=== PATIENT | female | born 1965 | race Caucasian/White ===

== ENCOUNTER 2017-12-01 00:27 | Emergency (ER) | payer OTHER ==
[2017-12-01] MEDS ORDERED: Amoxicillin/Clavulanate TAB* 875 MG PO ONE (02:40)
[2017-12-01] MEDS ORDERED: oxyCODONE/Acetamin 5/325 MG* TAB PO ONE (02:41)
[2017-12-01 03:40] VITALS: BP 125/85
--- NOTE | 2017-12-01 06:53 | ED ---
Tony White Abhishek, scribed for Jose R Agustin MD on 12/01/17 at 0325 . Throat Pain/Nasal Congestion - HPI Summary HPI Summary: Pt is a 52 y/o female presenting to the [facility] with a chief complaint of right ear pain since 5 days ago. The pt also reports of throat pain, neck pain, wheezing, sore throat, chest congestion, and fever. 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 The patient rates the pain 7/10 in severity. Symptoms aggravated by nothing. Symptoms alleviated by nothing. - History of Current Complaint Chief Complaint: EDEarPain Time Seen by Provider: 12/01/17 03:11 Hx Obtained From: Patient Onset/Duration: Gradual Onset, Lasting Days - since 5 days - Allergies/Home Medications Allergies/Adverse Reactions: Allergies Allergy/AdvReac Type Severity Reaction Status Date / Time Adhesive Tape Allergy Rash Verified 03/27/16 09:36 cefpodoxime [From Vantin] Allergy Rash And Verified 12/01/17 00:35 Itching latex Allergy Rash And Verified 12/01/17 00:35 Itching Sulfa (Sulfonamide Allergy Rash Verified 12/01/17 00:34 Antibiotics) PMH/Surg Hx/FS Hx/Imm Hx Cardiovascular History: Reports: Hx Hypertension, Other Cardiovascular Problems/ Disorders - CLOT IN LEFT LEG-HAD VEIN SURGERY NO PROBLEMS NOW Denies: Hx Hypercholesterolemia GI History: Reports: Hx Gastroesophageal Reflux Disease, Hx Hiatal Hernia - KAREN FUNDIPLICATION DONE A FEW YEARS AGO Musculoskeletal History: Reports: Hx Arthritis - HIPS Sensory History: Reports: Hx Contacts or Glasses - GLASSES Denies: Hx Hearing Aid Opthamlomology History: Reports: Hx Contacts or Glasses - GLASSES - Surgical History Surgery Procedure, Year, and Place: BACK SURGERY- [facility]-1999. KAREN FUNDOPLICATION- [facility]. 5 EAR SURGERIES. HYSTERECTOMY. CHOLECYSTECTOMY. WISDOM TEETH;. T & A. vein removed left leg Hx Anesthesia Reactions: Yes - NAUSEA AND VOMITING Infectious Disease History: No Infectious Disease History: Denies: Hx Clostridium Difficile, Hx Hepatitis, Hx Human Immunodeficiency Virus (HIV), Hx of Known/Suspected MRSA, Hx Shingles, Hx Tuberculosis, Hx Known/ Suspected VRE, Hx Known/Suspected VRSA, History Other Infectious Disease, Traveled Outside the [place] in Last 30 Days - Family History Known Family History: Positive: Cardiac Disease - both F and M - Social History Alcohol Use: Rare Hx Substance Use: No Substance Use Type: Reports: None Hx Tobacco Use: No Smoking Status (MU): Never Smoked Tobacco Review of Systems Positive: Fever Eyes: Negative ENT: Other - throat pain Positive: Sore Throat, Ear Ache - Right ear Respiratory: Other - Chest congestion, wheezing Gastrointestinal: Negative Genitourinary: Negative Musculoskeletal: Other - Neck pain Skin: Negative Neurological: Negative Psychological: Normal All Other Systems Reviewed And Are Negative: Yes Physical Exam - Summary Physical Exam Summary: VITAL SIGNS: Reviewed. GENERAL: ~Patient is a well-developed and nourished (FEMALE) who is lying comfortable in the stretcher. Patient is not in any acute respiratory distress. HEAD AND FACE: No signs of trauma. No ecchymosis, hematomas or skull depressions. No sinus tenderness. EYES: PERRLA, EOMI x 2, No injected conjunctiva, no nystagmus. EARS: TM Hyperemia right Possible effusion MOUTH: Oropharynx within normal limits. NECK: Supple, trachea is midline, no adenopathy, no JVD, no carotid bruit, no c- spine tenderness, neck with full ROM. CHEST: Symmetric, no tenderness at palpation LUNGS: Clear to auscultation bilaterally. No wheezing or crackles. CVS: Regular rate and rhythm, S1 and S2 present, no murmurs or gallops appreciated. ABDOMEN: Soft, non-tender. No signs of distention. No rebound no guarding, and no masses palpated. Bowel sounds are normal. EXTREMITIES: FROM in all major joints, no edema, no cyanosis or clubbing. NEURO: Alert and oriented x 3. No acute neurological deficits. Speech is normal and follows commands. SKIN: Dry and warm Triage Information Reviewed: Yes Vital Signs On Initial Exam: Initial Vitals Temp Pulse Resp BP Pulse Ox 97.5 F 86 16 148/78 100 12/01/17 00:32 12/01/17 00:32 12/01/17 00:32 12/01/17 00:32 12/01/17 00:32 Vital Signs Reviewed: Yes Diagnostics - Vital Signs Vital Signs Temp Pulse Resp BP Pulse Ox 12/01/17 03:00 16 12/01/17 00:32 97.5 F 86 16 148/78 100 - Laboratory Lab Results: Lab Results 12/01/17 12/01/17 Range/Units 02:58 03:01 Influenza A (Rapid) Negative (Negative) Influenza B (Rapid) Negative (Negative) Group A Strep Rapid Negative (Negative) Lab Statement: Any lab studies that have been ordered have been reviewed, and results considered in the medical decision making process. EENT Course/Dx - Course Course Of Treatment: The pt is a 52 y/o female presenting to the [facility] with a chief complaint of right ear pain. The pt has PMHx of ear drum rupture. Pt also reports of fever, chest congestion, sore throat, throat pain, wheezing and neck pain. The pt will be discharged to home with a dx of right otitis media and chronic right TM perforation. - Diagnoses Provider Diagnoses: Chronic otitis media of right ear with perforated tympanic membrane Discharge - Sign-Out/Discharge Documenting (check all that apply): Discharge - Home - Discharge Plan Condition: Good Disposition: HOME Prescriptions: Amoxicillin/Clavulanate TAB* [Augmentin TAB 875*] 875 mg PO BID #20 tab oxyCODONE/Acetamin 5/325 MG* [Percocet 5/325 TAB*] 2 tab PO Q6H PRN #14 tab MDD 4 PRN Reason: Pain Patient Education Materials: Ear Infection (ED) Referrals: Eduin Dunn MD [Medical Doctor] - (Follow up with ENT by tomorrow) Andrez Oseguera MD [Primary Care Provider] - (Follow up with Primary care Physician within 1 to 2 days.) Additional Instructions: We recommend 5 drops of Floxin twice a day. RETURN TO EMERGENCY DEPARTMENT FOR ANY NEW OR WORSENING SYMPTOMS The documentation as recorded by the Tony fernandez Abhishek accurately reflects the service I personally performed and the decisions made by , Jose R Agustin MD.
[2017-12-01] MEDS ORDERED: Ofloxacin 0.3% OTIC.SOL* 5 ML BTL RIGHT EAR SCH (09:00)
== END 2017-12-01 03:40 | disposition home or self-care (01) ==
LOC: ED 00:27
DX: H66.91 Otitis media, unspecified, right ear (principal); H72.91 Unspecified perforation of tympanic membrane, right ear; J02.9 Acute pharyngitis, unspecified; Z91.040 Latex allergy status; Z88.2 Allergy status to sulfonamides; Z88.8 Allergy status to other drugs, medicaments and biological substances; Z91.048 Other nonmedicinal substance allergy status
CPT/HCPCS: 87502; 87651; 99283; A9270-GY

== ENCOUNTER 2018-06-03 11:44 | Observation (INO) | payer OTHER ==
--- NOTE | 2018-06-03 12:20 | ED ---
Neurological HPI - HPI Summary HPI Summary: This pt is a 52 y/o female presenting to [facility] c/o headache and back pain s/p syncope yesterday. Pt reports she was eating dinner last night at a restaurant around 18:00 when "everything felt was going black." Pt states she felt dizziness and had palpitations. She then went to the bathroom and everything went black and had an unwitnessed syncopal episode where she fell backwards. She had posterior head strike and LOC. The next thing she remembers is waking up on the floor with urine incontinence. She felt confused upon waking up. Pt walked over to where her was and told him she was leaving. She then took her purse and drove home, and states "I don't know why." Pt reports she only had 2 beers and food while at the restaurant. At home yesterday pt notes she had a headache. Denies chest pain, SOB. She states this is the first time she has ever syncopized. Pt currently c/o dizziness, headache, back pain, numbness on lip. She rates her headache 6/10 in severity. Denies nausea, vomiting. Per ED nurse, pt is acting forgetful and forgot to give a urine sample after she was instructed right before. Pt reports she is always SOB and daughter agrees. Daughter states she has never been forgetful. For the past few months pt has had visual changes. She states she is working with a doctor regarding floaters in both eyes and her blurry vision. She had 3 visual studies at [facility] and failed all of them. Pt also had a brain MRI without contrast on 01/03/[address] Oseguera. PMHx: back surgery in 1999 in [place], [place](notes right leg is always weaker since surgery), HTN, "heart issues." Her last stress test was 2 years ago. - History of Current Complaint Chief Complaint: EDHeadInjury Stated Complaint: HEAD INJURY/SYNCOPE Time Seen by Provider: 06/03/18 12:00 Hx Obtained From: Patient, Family/Roller Leveler - Daughter Onset/Duration: Started days ago, Still Present Timing: Constant Current Severity: Moderate Pain Intensity: 6 - headache Pain Scale Used: 0-10 Numeric Character: Dizzy, Unable To Describe, Visual Changes Episode Lasting: Seconds/Minutes Number of Episodes: 1 Syncope Context: Unwitnessed, Loss of Consciousness: Yes Aggravating: Nothing Alleviating: Nothing Associated Signs and Symptoms: Positive: Visual Changes, Headache, Confusion, Loss of Consciousness, Dizziness, Pain - back pain, Numbness - on lip, Incontinent Bladder/Bowel - bladder incontinence x1 after syncope, Palpitations. Negative: Nausea/Vomiting, Fever, Chest Pain, Shortness of Breath - Additional Pertinent History Primary Care Physician: JERONIMO - Allergy/Home Medications Allergies/Adverse Reactions: Allergies Allergy/AdvReac Type Severity Reaction Status Date / Time Adhesive Tape Allergy Rash Verified 06/03/18 11:52 cefpodoxime [From Vantin] Allergy Rash And Verified 06/03/18 11:52 Itching latex Allergy Rash And Verified 06/03/18 11:52 Itching Sulfa (Sulfonamide Allergy Rash Verified 06/03/18 11:52 Antibiotics) Home Medications: Home Medications Cholecalciferol TAB* [Vitamin D TAB*] 1,000 unit PO DAILY 06/03/18 [History Confirmed 06/03/18] Lisinopril TAB* [Prinivil TAB*] 10 mg PO BID 06/03/18 [History Confirmed ] PMH/Surg Hx/FS Hx/Imm Hx Endocrine/Hematology History: Denies: Hx Diabetes Cardiovascular History: Reports: Hx Hypertension, Other Cardiovascular Problems/ Disorders - CLOT IN LEFT LEG-HAD VEIN SURGERY NO PROBLEMS NOW Denies: Hx Hypercholesterolemia GI History: Reports: Hx Gastroesophageal Reflux Disease, Hx Hiatal Hernia - KAREN FUNDIPLICATION DONE A FEW YEARS AGO Musculoskeletal History: Reports: Hx Arthritis - HIPS Sensory History: Reports: Hx Contacts or Glasses - GLASSES Denies: Hx Hearing Aid Opthamlomology History: Reports: Hx Contacts or Glasses - GLASSES - Surgical History Surgery Procedure, Year, and Place: BACK SURGERY- [facility]-1999. KAREN FUNDOPLICATION- [facility]. EAR SURGERIES. HYSTERECTOMY. CHOLECYSTECTOMY. WISDOM TEETH;. T & A. vein removed left leg Hx Anesthesia Reactions: Yes - NAUSEA AND VOMITING Infectious Disease History: No Infectious Disease History: Denies: Hx Clostridium Difficile, Hx Hepatitis, Hx Human Immunodeficiency Virus (HIV), Hx of Known/Suspected MRSA, Hx Shingles, Hx Tuberculosis, Hx Known/ Suspected VRE, Hx Known/Suspected VRSA, History Other Infectious Disease, Traveled Outside the [place] in Last 30 Days - Family History Known Family History: Positive: Cardiac Disease - both F and M - Social History Alcohol Use: Occasionally Hx Substance Use: No Substance Use Type: Reports: None Hx Tobacco Use: No Smoking Status (MU): Never Smoked Tobacco Review of Systems Negative: Fever, Chills Eyes: Other - POS: visual changes Positive: Blurred Vision Positive: Palpitations. Negative: Chest Pain Negative: Shortness Of Breath Negative: Vomiting, Nausea Positive: incontinence - of urine x1, after syncope Musculoskeletal: Other - back pain Neurological: Other - POS: dizziness Positive: Headache, Weakness - chronic right leg, Numbness - of lip, Syncope All Other Systems Reviewed And Are Negative: Yes Physical Exam - Summary Physical Exam Summary: VITAL SIGNS: Reviewed. GENERAL: Patient is a well-developed and nourished female who is lying comfortable in the stretcher. Patient is not in any acute respiratory distress. HEAD AND FACE: No signs of trauma. No ecchymosis, hematomas or skull depressions. No sinus tenderness. EYES: PERRLA, EOMI x 2, No injected conjunctiva, no nystagmus. EARS: Hearing grossly intact. Ear canals and tympanic membranes are within normal limits. MOUTH: Oropharynx within normal limits. NECK: Supple, trachea is midline, no adenopathy, no JVD, no carotid bruit, no c- spine tenderness, neck with full ROM. CHEST: Symmetric, no tenderness at palpation LUNGS: Clear to auscultation bilaterally. No wheezing or crackles. CVS: Regular rate and rhythm, S1 and S2 present, no murmurs or gallops appreciated. ABDOMEN: Soft, non-tender. No signs of distention. No rebound, no guarding, and no masses palpated. Bowel sounds are normal. EXTREMITIES: FROM in all major joints, no edema, no cyanosis or clubbing. NEURO: Alert and oriented x 3. No acute neurological deficits. Speech is normal and follows commands. Right plantar reflex has decreased. SKIN: Dry and warm GCS: 15 Triage Information Reviewed: Yes Vital Signs On Initial Exam: Initial Vitals Temp Pulse Resp BP Pulse Ox 97.8 F 62 18 168/86 100 06/03/18 11:44 06/03/18 11:44 06/03/18 11:44 06/03/18 11:44 06/03/18 11:44 Vital Signs Reviewed: Yes Diagnostics - Vital Signs Vital Signs Temp Pulse Resp BP Pulse Ox 06/03/18 11:44 97.8 F 62 18 168/86 100 - Laboratory Result Diagrams: 06/04/18 05:05 06/04/18 05:05 Lab Statement: Any lab studies that have been ordered have been reviewed, and results considered in the medical decision making process. - Radiology Chest XR Xray Interpretation: No Acute Changes - IMPRESSION: No active cardiopulmonary disease is identified. Dr. Godinez has reviewed this report. Radiology Interpretation Completed By: Radiologist - CT Brain CT CT Interpretation: No Acute Changes - IMPRESSION: No acute intracranial pathology. Dr. Godinez has reviewed this report. CT Interpretation Completed By: Radiologist - EKG 12:34 Cardiac Rate: NL - at 59 bpm EKG Rhythm: Sinus Rhythm EKG Interpretation: No ST elevations. EKG Comparison: No Significant Change - similar to prior 03/27/16. - Additional Comments Diagnostic Additional Comments: Brain MRI without contrast (from 01/03/18), as read by radiologist IMPRESSION: No acute infarct There are scattered foci of signal abnormality in a bifrontal distribution suggestive of sequelae of prior headaches or migraines, otherwise the MRI of the brain is within normal limits for age. There is a small air-fluid level noted within the left maxillary sinus. Clinical correlation is advised to exclude acute sinusitis. Course/Dx - Course Assessment/Plan: This pt is a 52 y/o female presenting to [facility] c/o headache and back pain s/p syncope yesterday. Pt reports she was eating dinner last night at a restaurant around 18:00 when "everything felt was going black." Pt states she felt dizziness and had palpitations. She then went to the bathroom and everything went black and had an unwitnessed syncopal episode where she fell backwards. She had posterior head strike and LOC. The next thing she remembers is waking up on the floor with urine incontinence. She felt confused upon waking up. Pt walked over to where her was and told him she was leaving. She then took her purse and drove home, and states "I don't know why." Pt reports she only had 2 beers and food while at the restaurant. At home yesterday pt notes she had a headache. Denies chest pain, SOB. She states this is the first time she has ever syncopize. Pt currently c/o dizziness, headache, back pain, numbness on lip. She rates her headache 6/10 in severity. Denies nausea, vomiting. Per ED nurse, pt is acting forgetful and forgot to give a urine sample after she was instructed right before. Pt reports she is always SOB and daughter agrees. Daughter states she has never been forgetful. For the past few months pt has had visual changes. She states she is working with a doctor regarding floaters in both eyes and her blurry vision. She had 3 visual studies at [facility] and failed all of them. Pt also had a brain MRI without contrast on 01/03/[address] Oseguera. Blood work without any significant abnormality. Urinalysis negative for UTI, urine toxicology is negative. Head CT impression no acute intracranial pathology. Chest x-ray impression: No active cardiopulmonary disease is identified. Since the patient continued to have episodes of confusion and intermittent dizziness as stated with palpitation, I believe that the patient would benefit of admission for further workup and management. The admission diagnosis is presyncope. I discussed my physical exam, findings and test results with Dr. Erickson, from the hospitalist services, and he agrees to admit patient to his services. Patient is hemodynamically stable, alert and oriented x 3. - Diagnoses Provider Diagnoses: Syncope, Confusion - Physician Notifications Discussed Care Of Patient With: Piotr Erickson - hospitalist Time Discussed With Above Provider: 14:58 Instructed by Provider To: Admit As Inpatient Discharge - Sign-Out/Discharge Documenting (check all that apply): Patient Departure - [place] [facility] [place] Discharge Plan Condition: Stable Disposition: ADMITTED TO [facility] - Billing Disposition and Condition Condition: STABLE Disposition: Admitted to [facility] - Attestation Statements Document Initiated by Scribe: Yes Documenting Scribe: Charlotte Geronimo Provider For Whom Robertibe is Documenting (Include Credential): Les Godinez MD Scribe Attestation: Charlotte White, scribed for Les Godinez MD on 06/04/18 at 0839. Scribe Documentation Reviewed: Yes Provider Attestation: The documentation as recorded by the Charlotte fernandez accurately reflects the service I personally performed and the decisions made by me, Les Godinez MD
[2018-06-03] MEDS ORDERED: NS 0.9% 1000 ML* 1,000 ML IV ONE (12:31)
[2018-06-03] MEDS ORDERED: diPHENhydraMINE IV* 50 MG/ML 1 ml VIAL (BENADRYL) IV ONE (12:32)
[2018-06-03] MEDS ORDERED: Metoclopramide IV* 5 MG/ML 2 ML VIAL IV SLOW PU ONE (12:32)
[2018-06-03 12:53] LABS: ABS Basophils 0.1 10^3/ul (0-0.2); ABS Eosinophils 0.1 10^3/ul (0-0.6); ABS Lymphocytes 1.6 10^3/ul (1.0-4.8); ABS Monocytes 0.4 10^3/ul (0-0.8); ABS Neutrophils 3.8 10^3/ul (1.5-7.7); ABS Nucleated RBC 0 10^3/ul; Eosinophil % 0.9 % (0-6); Hematocrit 40 % (35-47); Lymphocyte % 26.9 % (25-47); Mean Corpuscular HGB Conc 35 g/dl (31-36); Mean Corpuscular Hemoglobin 31 pg (27-31); Mean Corpuscular Volume 89 fL (80-97); Mean Platelet Volume 7.1 um3 (7.4-10.4); Nucleated Red Blood Cells % 0; Platelet Count 246 10^3/ul (150-450); Red Blood Count 4.53 10^6/ul (4.00-5.40); Red Cell Distribution Width 13 % (10.5-15); White Blood Count 5.9 10^3/ul (3.5-10.8)
[2018-06-03 13:13] LABS: EGFR Non-African American 90.1 (>60)
--- NOTE | 2018-06-03 13:28 | RAD ---
Indication: Syncope. 2 views of the chest including dual energy PA views demonstrate no mediastinal shift. Heart is of normal size and configuration. Lung marino are clear. When compared to previous exam of March 27, 2016 no significant change is noted. IMPRESSION: No active cardiopulmonary disease is identified.
--- NOTE | 2018-06-03 13:34 | RAD ---
HISTORY: Syncope COMPARISONS: None TECHNIQUE: Multiple contiguous axial CT scans were obtained of the head without intravenous contrast. FINDINGS: HEMORRHAGE/INFARCT: There is no hemorrhage or acute infarct. MASSES/SHIFT: There is no mass or shift. EXTRA-AXIAL SPACES: There are no extra-axial fluid collections. SULCI AND VENTRICLES: The sulci and ventricles are normal in size and position for the patient's stated age. CEREBRUM: There are no focal parenchymal abnormalities. BRAINSTEM: There are no focal parenchymal abnormalities. CEREBELLUM: There are no focal parenchymal abnormalities. VESSELS: The vessels are grossly normal. PARANASAL SINUSES: The paranasal sinuses are clear. ORBITS: The orbits are unremarkable. BONES AND SOFT TISSUE: No bone or soft tissue abnormalities are noted. OTHER: None IMPRESSION: NO ACUTE INTRACRANIAL PATHOLOGY.
[2018-06-03 13:48] LABS: Urine Appearance Cloudy; Urine Blood 1+ (Negative); Urine Color Yellow; Urine Ketones Negative (Negative); Urine Protein Negative (Negative); Urine Red Blood Cell Trace(0-2/hpf) (Absent); Urine Specific Gravity 1.017 (1.010-1.030); Urine Urobilinogen Negative (Negative); Urine White Blood Cell Trace(0-5/hpf) (Absent)
[2018-06-03] MEDS ORDERED: Ondansetron INJ* 2 MG/ML VIAL IV PRN (17:36)
[2018-06-03] MEDS ORDERED: Ibuprofen TAB* 400 MG PO PRN (17:49)
[2018-06-03] MEDS: Acetaminophen TAB* 325 MG PO PRN (21:31)
[2018-06-03] MEDS: Lisinopril TAB* 10 MG PO SCH (21:31)
--- NOTE | 2018-06-03 21:38 | HP ---
AMENDED REPORT NOW INCLUDES COSIGNER DESIGNATION CC: Dr. Oseguera * ADMISSION HISTORY AND PHYSICAL: DATE OF ADMISSION: 06/03/18. PRIMARY CARE PROVIDER: Dr. Oseguera. MY ATTENDING WHILE IN THE HOSPITAL: Dr. Piotr Erickson* (dictated by TEJA Laughlin). CHIEF COMPLAINT: Syncope with fall and head trauma. HISTORY OF PRESENT ILLNESS: Ms. Blair is a 52-year-old female with past medical history significant for hypertension, recent change in her vision, and recent diagnosis of ocular migraines, who yesterday was in her normal state of health, and was out to eat with her when she suddenly began to feel dizzy with hot and cold flashes. The patient felt like she was felt nauseous, but did not vomit. The patient was able to get up and felt very unsteady on her feet, went to the bathroom, sat on the toilet and passed out. The patient lost control of her bladder. The patient hit her head. The patient believed she hit her head on the wall due to head pain, but she does not remember this happening. The patient denies any chest pain, shortness of breath or palpitations. The patient has had episodes of dizziness without palpitations before, but was never passed out. The patient had an MRI done of her head earlier this year due to a vision field loss that she had in her left eye, which was took out half of her field, which has now returned. The patient also had intermittent blurring in her vision. The patient's MRI showed nonspecific white matter abnormalities. The patient has no recent illnesses. No recent sick contacts. The patient has no history of cardiac disease, atrial fibrillation. The patient had a negative stress test in 2016. The patient, since her fall, feels off and has a headache generalized in her head. The patient has no history of seizures. The patient did not bite her tongue. The patient had no weakness after the event. The patient felt very disoriented, after the event and drove home without her family. The patient has had retroorbital pain for the past week, which she has not had previously in her life with no vision changes and no exacerbation of the pain with eye movement. No reproduction of the pain with palpation over the sinuses. The patient with this has a feeling of wooziness. Due to concern for syncope of cardiac versus neurologic origin, we were asked to evaluate the patient for the admission to the hospital. PAST MEDICAL HISTORY: Hypertension, depression, arthritis, lumbar radiculopathy , status post surgery, GERD, status post Courtney fundoplication, ocular migraines. PAST SURGICAL HISTORY: Multiple back surgeries, Courtney fundoplication, multiple ear surgeries including a tympanoplasty, and multiple tympanostomies as a child. MEDICATIONS: 1. Lisinopril 10 mg p.o. b.i.d. 2. Vitamin D 1000 units p.o. daily. ALLERGIES: SULFA, ADHESIVE TAPE, LATEX, CEFPODOXIME. FAMILY HISTORY: The patient's mother of heart disease. The patient's father had a stroke and of pneumonia. The patient has a sister who is healthy. The patient has 2 children, who are healthy. SOCIAL HISTORY: The patient has never smoked. The patient drinks alcohol occasionally. The patient denies illicit drug use. The patient works in a [employer] office, [place]. The patient is and has 2 children. The patient's surrogate decision maker is her , Vipin Blair. REVIEW OF SYSTEMS: A 14-point review of systems was reviewed and is negative except as above in the HPI. PHYSICAL EXAMINATION GENERAL: The patient is a 52-year-old female, who appears stated age and sitting comfortably in the bed, in no acute distress. VITAL SIGNS: At the time of evaluation, temperature 97.8, pulse rate 62, respiratory rate 18, oxygen saturation 100% on room air, blood pressure 160/86. HEENT: Head: Normocephalic, atraumatic. Sclerae anicteric. No conjunctival injection. Nasal mucosa moist. Oral mucosa moist. No pharyngeal erythema, discharge or exudate. NECK: Supple, nontender. No lymphadenopathy. No carotid bruit auscultated. No JVD. RESPIRATORY: Clear to auscultation bilaterally. No wheezes, rales or rhonchi. Good air exchange bilaterally. CARDIAC: Regular rate and rhythm. No clicks, murmurs, gallops or rubs. Pulses 2+ in the bilateral dorsalis pedis, posterior tibialis, and radial areas. No bilateral lower extremity edema noted. No bilateral calf tenderness. ABDOMEN: Soft, nontender, nondistended. Bowel sounds are present. Normoactive in all 4 quadrants. No hepatosplenomegaly. No abdominal bruits auscultated. No hepatojugular reflux. GENITOURINARY: No suprapubic or CVA tenderness. SKIN: Clean, dry, intact. No rash. NEUROLOGIC: Cranial nerves II through XII intact. No focal deficits. Alert and oriented x3. Strength preserved in the bilateral upper and lower extremities distally and proximally. Sensation to light touch preserved in the bilateral upper and lower extremities distally and proximally. No visual field loss. No nystagmus. No ophthalmoplegia. No gait abnormalities. Negative Romberg. No pronator drift. Normal gait, able to [id number] walk. Reflexes 2+ bilateral biceps, patellar, and Achilles areas. PSYCHIATRIC: Pleasant and cooperative. DIAGNOSTIC STUDIES/LAB DATA: Brain CT read as no acute intracranial pathology. Chest x-ray read as no active cardiopulmonary disease noted. Electrocardiogram shows normal sinus rhythm. No ST segment abnormalities. No hypertrophy or enlargement, rate of 59, QTc of 415, no blocks, normal axis, consistent with previous exam. Laboratory Data: White blood cell count 5.9, hemoglobin 14, hematocrit 40, platelet count 246. D-dimer less than 200. Sodium 141, potassium 3.9, chloride 110, carbon dioxide 26, anion gap 5, glucose 89, lactic acid 0.6, calcium 9.1, magnesium 2.0. Bilirubin 0.4, AST 14, ALT 9, alkaline phosphatase 69, ammonia 28, troponin I 0.00, BNP 13, total protein 6.8, albumin 4.2, globulin 2.6, TSH 1.68. Urine color yellow cloudy, 1+ blood, 1+ bacteria, positive urine squamous epithelial cells. Toxicology noncontributory. ASSESSMENT AND PLAN: Ms. Blair is a 52-year-old female with past medical history significant for hypertension, recently also ocular migraines, who presents to the emergency department at one night after she had a syncopal episode with loss of bladder control with head trauma with residual symptoms including headache and wooziness. The patient's workup to this point is negative. The patient will be admitted for a full workup for syncope including EEG, MRI and MRA of her brain to assess for large vessel occlusion and venous thrombosis as well as echocardiogram, telemetry monitoring, and neurological consultation. 1. Syncope. The patient's syncope does not have any clear etiology. The differential includes a cardiac for which we will monitor her on telemetry, obtain echocardiogram. The patient's troponin is negative. The patient has no other laboratory abnormalities. The patient has a negative D-dimer. Due to the patient's loss of bladder control, though not definitive seizures also on the differential, the patient will have an EEG, which will be read. The patient will also have a neurological consultation. The patient has no residual neurologic deficits as presentation is not likely indicative of CVA; however, the patient will have an MRI of her head. The patient had a negative CT. The patient will be seen in consultation by Dr. Milan Lomeli tomorrow. The patient's headache and feeling of wooziness are likely due to mild concussion syndromes from her head trauma. The patient will have ibuprofen and Tylenol to manage this. The patient had negative urinalysis and no other laboratory abnormalities that indicate acute infection. 2. Hypertension. Continue the patient's lisinopril. The patient is currently normotensive. 3. DVT prophylaxis: The patient will have SCDs as she is at moderate risk while in the hospital. The patient will be also encouraged to ambulate. 4. Fluids, electrolytes, and nutrition: The patient will have a heart healthy diet without caffeine. The patient does not need fluids at this time. 5. Disposition: The patient is admitted for observation. 6. Code status: The patient will be a full code. The patient's surrogate decision maker will be her as above. TIME SPENT: Approximately, 60 minutes was spent on the evaluation of this patient, 30 of which was spent [id number] with the patient obtaining history and physical and discussing treatment plan. The plan was discussed with my attending, Dr. Joaquim Erickson, he is in agreement. TEJA LAUGHLIN [id number]/[facility] #: [id number] UMANG
--- NOTE | 2018-06-03 21:57 | RAD ---
EXAM: MR Angiography Head Without Intravenous Contrast CLINICAL HISTORY: 52 years old, female; Injury or trauma and signs and symptoms; Fall; Initial encounter; Concussion; Loss of consciousness for 30 minutes or less; Head; Dizziness and giddiness and headache and syncope and collapse; Injury date: 06/02/18; Patient HX: Pt had a syncopal episode and hit her head on a concrete wall when she fell. Now C/O confusion, headache and dizziness. Pt also C/O pain behind right eye x 1 week. ; Additional info: Syncope, vision changes, retroorbital pain TECHNIQUE: Magnetic resonance angiography images of the head without intravenous contrast. COMPARISON: BRAIN WO CT BRAIN WO 06/03/2018 1:21 PM FINDINGS: Right internal carotid artery: No acute findings. Intracranial segment is patent with no significant stenosis. No aneurysm. Right anterior cerebral artery: Unremarkable. No occlusion or significant stenosis. No aneurysm. Right middle cerebral artery: Unremarkable. No occlusion or significant stenosis. No aneurysm. Right posterior cerebral artery: Unremarkable. No occlusion or significant stenosis. No aneurysm. Right vertebral artery: Unremarkable as visualized. Left internal carotid artery: No acute findings. Intracranial segment is patent with no significant stenosis. No aneurysm. Left anterior cerebral artery: Unremarkable. No occlusion or significant stenosis. No aneurysm. Left middle cerebral artery: Unremarkable. No occlusion or significant stenosis. No aneurysm. Left posterior cerebral artery: Unremarkable. No occlusion or significant stenosis. No aneurysm. Left vertebral artery: Unremarkable as visualized. Basilar artery: Unremarkable. No occlusion or significant stenosis. No aneurysm. IMPRESSION: No acute findings. To contact [facility] with a general question: [facility] - [phone] For direct physician to physician contact: Physician Hotline - [phone] [facility] ([facility] Facility ID #[id number])
--- NOTE | 2018-06-03 21:59 | RAD ---
EXAM: MR Venography Head Without Intravenous Contrast CLINICAL HISTORY: 52 years old, female; Injury or trauma and signs and symptoms; Fall; Initial encounter; Concussion; Loss of consciousness for 30 minutes or less; Head; Dizziness and giddiness and headache and syncope and collapse; Injury date: 06/02/18; Patient HX: Pt had a syncopal episode and hit her head on a concrete wall when she fell. Now C/O confusion, headache and dizziness. Pt also C/O pain behind right eye x 1 week. ; Additional info: Syncope, vision changes, retroorbital pain TECHNIQUE: Magnetic resonance venography images of the head without intravenous contrast. COMPARISON: MRAHEAD WO MRA HEAD W/O 06/03/2018 8:18 PM FINDINGS: Superior sagittal sinus: Unremarkable. Patent. Straight sinus: Unremarkable. Patent. Transverse sinuses: Unremarkable. Patent. Sigmoid sinuses: Unremarkable. Patent. Internal jugular veins: Unremarkable as visualized. Internal cerebral and cortical veins: Unremarkable as visualized. IMPRESSION: No acute findings. To contact [facility] with a general question: [facility] - [phone] For direct physician to physician contact: Physician Hotline - [phone] [facility] ([facility] Facility ID #[id number])
--- NOTE | 2018-06-04 03:16 | EEG ---
ELECTROENCEPHALOGRAPHY: DATE OF STUDY: - ROOM #450 DATE OF DICTATION: 06/03/18 PATIENT OF: Dr. Erickson and Dr. Oseguera.* CLINICAL PROBLEM: This is a 52-year-old woman being evaluated for a dizzy episode with passing out, study was done to rule out seizures. MEDICATIONS: Include lisinopril. REPORT: With the patient awake, background cerebral activity consists of 8 to 9 Hz rhythm, which attenuates with eye opening and reappears with eye closure. Neither hyperventilation nor photic stimulation is performed. No epileptiform potentials, major asymmetries of background, or focal abnormalities are present. CLINICAL IMPRESSION: This is awake EEG is within normal limits. [id number]/[facility] #: [id number] [facility]
[2018-06-04 05:26] LABS: ABS Basophils 0 10^3/ul (0-0.2); ABS Eosinophils 0.1 10^3/ul (0-0.6); ABS Lymphocytes 1.6 10^3/ul (1.0-4.8); ABS Monocytes 0.4 10^3/ul (0-0.8); ABS Nucleated RBC 0 10^3/ul; Hematocrit 39 % (35-47); Hemoglobin 13.8 g/dl (12.0-16.0); Lymphocyte % 31.3 % (25-47); Mean Corpuscular HGB Conc 35 g/dl (31-36); Mean Corpuscular Hemoglobin 32 pg (27-31); Mean Corpuscular Volume 89 fL (80-97); Mean Platelet Volume 7.2 um3 (7.4-10.4); Nucleated Red Blood Cells % 0.1; Platelet Count 216 10^3/ul (150-450); Red Blood Count 4.38 10^6/ul (4.00-5.40); Red Cell Distribution Width 13 % (10.5-15); White Blood Count 5.1 10^3/ul (3.5-10.8)
[2018-06-04 05:41] LABS: EGFR Non-African American 101.9 (>60)
[2018-06-04] MEDS: Acetaminophen TAB* 325 MG PO PRN ×2 (06:19→12:37)
[2018-06-04] MEDS ORDERED: Cholecalciferol TAB* 1000 UNITS PO SCH (09:00)
[2018-06-04] MEDS: Lisinopril TAB* 10 MG PO SCH (09:22)
--- NOTE | 2018-06-04 10:56 | PN ---
Subjective Date of Service: 06/04/18 Interval History: Ms. Blair denies complaint and is eager for discharge to home. She reports recent intermittent loss of visual field with diagnosis of ocular migraine outpatient by opthamologist, including a negative MRI brain. She denies complaint today including headache, visual field loss, chest pain, SOB, nausea, abdominal pain, lightheadedness or dizziness. Objective Active Medications: Acetaminophen (Tylenol Tab*) 650 mg PO Q6H PRN Cholecalciferol (Vitamin D Tab*) 1,000 units PO DAILY TRIPP Ibuprofen (Motrin Tab*) 400 mg PO Q6H PRN Lisinopril (Prinivil Tab*) 10 mg PO BEDTIME TRIPP Ondansetron HCl (Zofran Inj*) 4 mg IV Q6H PRN Vital Signs: Temp Pulse Resp BP Pulse Ox 97.9 F 73 18 123/78 100 06/04/18 07:48 06/04/18 07:48 06/04/18 07:48 06/04/18 07:48 06/04/18 07:48 Oxygen Devices in Use Now: None Appearance: Female sitting up in bed in NAD Eyes: No Scleral Icterus Ears/Nose/Mouth/Throat: Mucous Membranes Moist Neck: Trachea Midline Respiratory: Symmetrical Chest Expansion and Respiratory Effort, Clear to Auscultation Cardiovascular: NL Sounds; No Murmurs; No JVD, No Edema Abdominal: NL Sounds; No Tenderness; No Distention Extremities: No Edema Skin: No Rash or Ulcers Neurological: Alert and Oriented x 3, NL Muscle Strength and Tone Nutrition: Taking PO's Result Diagrams: 06/04/18 05:05 06/04/18 05:05 Assess/Plan/Problems-Billing Assessment: Ms. Blair is a 52 yo female with a PMH of ocular migraines who was admitted on after a syncopal episode in the bathroom. - Patient Problems (1) Syncope Comment: - No events noted on telemetry. Recent outpatient echo without significant findings per patient ([place]) - Appreciate neurology consult. CT brain negative. Head MRA/MRV negative. Plan for carotid US prior to discharge, negative. - Symptoms are consistent with vasovagal syncope given prodrome with sweating, tunnel vision which occurred while eating leading to syncopal episode in the bathroom. - However, given that there was no clear inciting factor, would recommend outpatient cardiac monitoring with 30 day monitor or loop recorder. (2) Hypertension Comment: - Continue lisinopril. (3) DVT prophylaxis Comment: - SCDs. (4) Full code status Comment: Status and Disposition: OBV. Discharge to home
--- NOTE | 2018-06-04 12:10 | EEG ---
ELECTROENCEPHALOGRAPHY: DATE OF STUDY: 06/03/18 REFERRING PROVIDER: Dr. Gresham. LOCATION: She is in the emergency room. CLINICAL HISTORY: History of loss of consciousness the night before this recording. The patient may have hit her head. She is amnestic for at least portions of that event. MEDICATIONS: Include lisinopril. ELECTROENCEPHALOGRAPHY DESCRIPTION: A 16-channel EEG is remarkable for background rhythms consistent with a posterior alpha rhythm about 9 to 9-1/2 cycles per second, which is symmetric and suppressed by eye opening. Low voltage bifrontal beta rhythms are noted and are symmetric. Activation procedures are not attempted. The patient was drowsy at times, but does not fall asleep. There are no focal, lateralized, or epileptiform abnormalities. INTERPRETATION: Normal awake EEG. [id number]/[facility] #: [id number] MTDD
--- NOTE | 2018-06-04 12:59 | CONS ---
CC: Dr. Oseguera* CONSULTATION REPORT: ADMISSION DATE: 06/03/18 DATE OF CONSULT: 06/04/18 PRIMARY CARE PROVIDER: Dr. Oseguera REASON FOR CONSULT: Syncopal like episode. HISTORY OF PRESENT ILLNESS: Ms. Blair is a very nice 52-year-old female with a history of hypertension, on lisinopril, some depression, low back pain, status post Courtney fundoplication, also fairly recently diagnosed with ocular migraine. She has had 2 episodes in the past where she lost vision transiently on the left side. She did visit her eye doctor, apparently she had an MRI scan reported normal. She presented to the hospital after having an episode on , where she was in a restaurant having dinner. She ate a salad, started to feel numb and sweaty. Her vision started to tunnel, she got up and went to the bathroom, got on the toilet and then passed out, hit her head and lost control of her bladder. She had 1 similar episode in the past. She states that she was evaluated with a heart study that was normal and she states that her doctor was going to order a carotid ultrasound as well, but has not been done. She denies any tongue biting. Her mother had 1 grand mal seizure, otherwise no family history of seizure. She has no history. No history of meningitis or head trauma. She had no febrile seizures as a child. She denies any sick contacts, any recent nausea, vomiting, diarrhea, constipation. She has had no fevers or chills. She has no neck pain. She does occasionally have a headache. She most recently had a migrainous headache preceded by left-sided visual field loss for about 2 to 3 minutes. It then subsequently resolved similar nature to her prior headache. She denies any palpitations or chest pain. She has no history of atrial fibrillation. After she passed out, she was somewhat disoriented, but this cleared. She initially went to the ER, but the line was too long and she left. She went to her primary care doctor the next day, who recommended that she go to the hospital to get checked out. Since being in the hospital, she has had no further episodes. She feels fine. Telemetry has been monitored, showed no events. She did at the time of her episode feel like she was going to vomit, but she did not. She also felt very clammy and sweaty at that time. The patient also notes a history of some pain behind the right eye, which has been ongoing for several weeks. The pain is contestant and dull. No throbbing quality. PAST MEDICAL HISTORY: As noted. PAST SURGICAL HISTORY: Includes Courtney fundoplication, back surgeries, ear surgeries. MEDICATIONS: At home include: 1. Lisinopril 10 mg p.o. b.i.d. 2. Vitamin D. ALLERGIES: SULFA, CEFPODOXIME, TAPE, LATEX. FAMILY HISTORY: Coronary artery disease in her mother. Coronary artery disease in her father, who of a stroke and pneumonia. Mother had a history of 1 seizure. She has 2 children who are healthy. 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 She denies any history of tobacco, illicit substance use, drinks approximately 2 beers per week on , although she had, had 1 beer on during this most recent on . She has 2 children, who is . Surrogate decision maker is her . REVIEW OF SYSTEMS: In 14-organ systems as noted above, otherwise negative. PHYSICAL EXAM: Vitals Signs: Temperature is 97.9, pulse rate of 73, respiratory rate of 18, O2 is 100% on room air, blood pressure has been in the 120s/70s. In general, she is a well-nourished, well-developed female, in no acute distress. She is somewhat obese. She is sitting in her hospital bed, pleasant, well dressed, well groomed. HEENT: She is normocephalic, atraumatic. Sclerae are anicteric. Mucous membranes are moist. Oropharynx is clear. Nares are patent. Neck is supple. No thyromegaly. No carotid bruits. No meningismus. Chest: Clear to auscultation bilaterally. Cardiovascular: Regular rate and rhythm. No murmurs, gallops, or rubs. Abdomen: Nontender, nondistended. Extremities: No clubbing, cyanosis, or edema. Her skin is warm and dry without lesions. On neurologic exam, she is awake, alert, oriented x3. Her speech is fluent. There is no dysarthria. Repetition is intact. Recall of recent and remote events is intact. Vocabulary is intact. Her mood is dysthymic. Affect, mood congruent. Cranial nerves II through XII: Pupils are equal, round, and reactive to light. Extraocular muscles are intact. There is no diplopia. No ptosis. Visual marino are full. Face is symmetric. Facial sensation is intact. Tongue is middling. Hearing is intact. . Palate raises symmetrically. Sternocleidomastoid is 5/5. Motor Exam: She is 5/5 throughout. Tone and bulk are both normal. There is no drift. Sensation is intact to light touch and pinprick in the upper and lower extremities. No focal loss. DTRs are 2+ and symmetric in the upper and lower extremities with equivocal Babinski's. [id number] and rapid alternating movements are intact without tremors without dysdiadochokinesia or dysmetria. Gait was not tested at this time. LABORATORY DATA/DIAGNOSTIC STUDIES: Includes a CBC with diff significant for an MCH of 32, MPV of 7.2, and monocyte percent of 8.4. Coagulation, D-dimer less than 200. Complete metabolic profile yesterday significant for BUN and creatinine ratio of 23.2. This morning, calcium of 8.4, chloride of 112, TSH of 1.68, troponin is 0.00, ammonia 28, BNP of 13. Urine 1+ blood, squamous epithelial cells and 1+ bacteria. U-tox negative. Serum alcohol less than 10. EEG yesterday was normal. Awake EEG, MRA, and MRV of the head were negative. Previously MRI of the brain reported was negative. CT of the brain showed no acute intracranial abnormalities. Chest x-ray, no acute cardiopulmonary disease. EKG normal sinus rhythm. Telemetry, no events. ASSESSMENT AND PLAN: Ms. Blair is a 52-year-old female with a history of hypertension, treated with lisinopril, history of depression, low back pain, GERD, history of recently diagnosed ocular migraines, reports prior MRI negative with some nonspecific white matter abnormalities. She has had 1 episode in the past of what sounds like syncope evaluated with the heart study, which she states was normal and she denies any history of cardiac problems including arrhythmias or atrial fibrillation. She presented to the hospital 1 day after she had a syncopal- like episode. The semiology sounds much more like a syncope than seizure, although she did lose control of her bladder, she was on the toilet at that time. My suspicion is that she has had a vasovagal reaction and subsequently had a syncopal event. Based on the history and physical, which is nonfocal, I would not treat her for any seizure-like activity. The plan is to get a carotid ultrasound to round out her workup, I suspect if this will be negative. then I would recommend a 30-day event monitor to rule out any arrhythmias. I would like to see her back in my clinic in 6 to 8 weeks just to check in and see how she is doing, consider further studies if necessary. I told her to return to the ER immediately should she have new symptoms. I will sign off for now, but I will remain available for any new symptoms or any changes. If her carotid ultrasound is normal, I think it is okay for her to be discharged home with followup. Thank you for the opportunity to participate in her care. [id number]/[facility] #: [id number] UMANG
[2018-06-04 15:51] VITALS: BP 128/66
--- NOTE | 2018-06-04 16:59 | RAD ---
CPT II: CPT II Codes: 3100F Indication: Syncope. Duplex Doppler sonography of the carotid arteries was performed. Right common carotid artery demonstrates no intimal wall thickening. Peak systolic velocity of the distal right common carotid artery is 77 cm/s. Peak systolic velocity of the right proximal internal carotid artery 75 cm/s. The ICA/CC ratio 0.97. Right vertebral artery demonstrates antegrade flow. The left common carotid artery demonstrates no intimal wall thickening. No plaque is noted in the carotid bulb extending into the left internal carotid artery. Peak systolic velocity of the distal left common carotid artery is 78 cm/s. Peak systolic velocity of the left proximal internal carotid artery is 76 cm/s. The ICA/CC ratio 0.97. Left vertebral artery demonstrates antegrade flow. IMPRESSION: Normal bilateral carotid ultrasound with normal internal carotid arteries.
[2018-06-04] MEDS ORDERED: Lisinopril TAB* 10 MG PO SCH (21:00)
--- NOTE | 2018-06-05 03:23 | DS ---
AMENDED REPORT NOW INCLUDES DESIGNATED COSIGNER CC: Dr. Oseguera* [facility] DISCHARGE SUMMARY: DATE OF ADMISSION: 06/03/18 DATE OF DISCHARGE: 06/04/18 PRIMARY CARE PHYSICIAN: Dr. Oseguera. ATTENDING PHYSICIAN: Dr. Lori Phelan* (dictation provided by Britni Flannery NP) . PRIMARY DIAGNOSIS: Syncope, suspected vasovagal. SECONDARY DIAGNOSES: 1. History of recent diagnosis of ocular migraines with visual field cut. 2. Hypertension. 3. Depression. 4. Arthritis. 5. Lumbar radiculopathy, status post surgery. 6. Gastroesophageal reflux disease. 7. Status post Courtney fundoplication. MEDICATIONS AT THE TIME OF DISCHARGE: Unchanged. 1. Lisinopril 10 mg p.o. b.i.d. 2. Vitamin D 1000 units p.o. daily. HOSPITAL COURSE: Ms. Blair is a 52-year-old female with past medical history as outlined above, who presented to the emergency room on 06/03/18 after syncope with fall and head trauma. Please see the dictated H and P from Piotr Erickson MD, for complete details. In brief, the patient states that she had recently been diagnosed with ocular migraines after developing a sudden visual field cut that resolved. She followed up closely with Ophthalmology and had had an MRI brain outpatient, which was negative. Her symptoms were then attributed to ocular migraines. She states that she was out with her eating at a restaurant, she ate salad and thereafter began to feel dizzy with hot and cold flashes. She felt nauseous, but did not vomit. She was unsteady on her feet, but went to the bathroom and when she got to the toilet she had a loss of consciousness and passed out, she lost control of her bladder and hit her head. In the emergency room, the patient had a CT of the brain, which showed no acute intracranial pathology. Her workup also included a chest x-ray that showed no active cardiopulmonary disease and EKG which showed a sinus rhythm with no evidence of ischemia and a heart rate of about 60. Her labs were unremarkable. Her D-dimer was less than 200. She had no evidence of urinary tract infection. Her vitals were stable. Ms. Blair then went on to have a head MRA/MRV, which showed no acute findings. She had an EEG, which was read by Dr. Gresham as "this is an awake EEG within normal limits." Ms. Blair was seen in consultation by Dr. Milan Lomeli from Neurology and I refer you to this note for complete details. In brief, he agrees with our workup. In addition to the MRI outpatient, the patient reports a recent history of transthoracic echocardiogram outpatient, which was negative for any acute abnormality per her report. She has been monitored on the telemetry unit without any evidence of arrhythmia. She is asymptomatic with no evidence of lightheadedness or dizziness. Dr. Lomeli recommended that the patient had a carotid ultrasound, which was performed and was also negative. He suspects that she likely has sounds like a vasovagal syncope. Ms. Blair is medically stable for discharge to home after this negative workup. We continue to suspect that she had vasovagal syncope, but given the fact that she had no clear provocating factor, we would recommend further workup outpatient with placement of a 30-day or long-term event monitor. The patient follows at the [facility] with Cardiology there and I have recommended that she call on Wednesday a.m. for an appointment to arrange for this monitoring to be performed. DISCHARGE CONDITION: Ms. Blair is medically stable for discharge to home. DISPOSITION: Home. DIET: Low-fat, low-salt. ACTIVITY: As tolerated. FOLLOWUP PLANS: 1. Please follow up with Dr. Oseguera in the next week. 2. Please follow up with [facility]. The patient was asked to call for an appointment on Wednesday. TIME SPENT: Approximately 60 minutes was spent on the discharge of this patient , more than half the time was spent with the patient at the bedside reviewing the events leading up to and during this hospitalization, performing the physical examination, and reviewing my plan of care. BRITNI FLANNERY, CYRUS [id number]/[facility] #: [id number] UMANG
== END 2018-06-04 17:55 | disposition home or self-care (01) ==
LOC: ED 11:44 → MEDTELE 20:03
PROVIDERS: ADMIT Internal Medicine; ATTEND Internal Medicine
DX: R55 Syncope and collapse (principal); S09.90XA Unspecified injury of head, initial encounter; I10 Essential (primary) hypertension; M54.5 Low back pain; W19.XXXA Unspecified fall, initial encounter; Y92.9 Unspecified place or not applicable; M19.90 Unspecified osteoarthritis, unspecified site; K21.9 Gastro-esophageal reflux disease without esophagitis; R06.02 Shortness of breath; R42 Dizziness and giddiness
CPT/HCPCS: 36415; 70450; 70544; 71046; 80048; 80053; 80307; 80320; 81003; 81015; 82140; 83605; 83735; 83880; 84443; 84484; 85025; 85379; 87086; 93005; 93880; 95816; 96361; 96374; 96375; 96376; 99284; A9270-GY; G0378; G0480; J1200; J2765